=== PATIENT | female | born 1975 | race Caucasian/White ===

== ENCOUNTER 2018-12-02 08:50 | Emergency (ER) | payer BC ==
[2018-12-02] MEDS ORDERED: diphenhydrAMINE 50 MG Cap PO ONE (09:38)
[2018-12-02] MEDS: predniSONE 20 MG Tab PO ONE (09:45)
[2018-12-02] MEDS: diphenhydrAMINE 25 MG Tab PO ONE (09:50)
--- NOTE | 2018-12-02 10:04 | EDM.PDOC ---
ED HPI GENERAL MEDICAL PROBLEM - General Chief Complaint: Skin Complaint Stated Complaint: FACIAL SWELLING Time Seen by Provider: 12/02/18 09:00 - History of Present Illness INITIAL COMMENTS - FREE TEXT/NARRATIVE: Facial redness and swelling; mainly upper face and around eyes since awaking this am. Pt. states her skin is normally smooth and has been rough and bumpy like a rash since yesterday. She has many allergies to environmental allergens. No known exposures except a knew facial product; stopped today. No fever or chills, no nausea or diarrhea. - Related Data Allergies Allergy/AdvReac Type Severity Reaction Status Date / Time erythromycin base Allergy unknown Verified 12/02/18 09:01 Home Meds: Home Meds Levothyroxine Sodium [Synthroid] 25 mcg PO DAILY 12/02/18 [History] Past Medical History HEENT History: Reports: None Cardiovascular History: Reports: None Respiratory History: Reports: None Gastrointestinal History: Reports: None Genitourinary History: Reports: None Musculoskeletal History: Reports: None Neurological History: Reports: None Psychiatric History: Reports: None Endocrine/Metabolic History: Reports: Hypothyroidism Hematologic History: Reports: None Immunologic History: Reports: None Oncologic (Cancer) History: Reports: None Dermatologic History: Reports: Cellulitis Social & Family History - Tobacco Use Smoking Status *Q: Never Smoker Second Hand Smoke Exposure: No ED ROS GENERAL - Review of Systems Review Of Systems: ROS reveals no pertinent complaints other than HPI. ED EXAM, SKIN/RASH Exam: See Below General Appearance: Alert, WD/WN, No Apparent Distress Ears: Normal External Exam, Normal Canal, Hearing Grossly Normal, Normal TMs Nose: Normal Inspection, Normal Mucosa Throat/Mouth: Normal Inspection, Normal Oropharynx Head: Atraumatic, Normocephalic, Facial Swelling, Other (aditya orbital mild edema as well as mild eye lids with rash ) Neck: Normal Inspection, Supple, Non-Tender Respiratory/Chest: No Respiratory Distress, Lungs Clear, Normal Breath Sounds Cardiovascular: Normal Peripheral Pulses, Regular Rate, Rhythm Skin: Warm, Dry, Other (facial pink rash periorbital and extends to cheeks; mild edema of eye lids. No vesicles or weeping) Location, Skin: Face Characteristics: Maculopapular, Erythematous Associated features: Warmth, Swelling, Inflammation, Rough Lymphatic: No Adenopathy Course - Vital Signs Last Recorded V/S: Last Vital Signs Temp 37.2 C 12/02/18 08:57 Pulse 81 12/02/18 08:57 Resp 16 12/02/18 08:57 BP 144/91 H 12/02/18 08:57 Pulse Ox 100 12/02/18 08:57 - Orders/Labs/Meds Meds: Medications Discontinued Medications Generic Name Dose Route Start Last Admin Trade Name Horace PRN Reason Stop Dose Admin Diphenhydramine HCl 25 mg 12/02/18 09:38 Benadryl PO 12/02/18 09:39 ONETIME ONE Diphenhydramine HCl 25 mg 12/02/18 09:45 12/02/18 09:50 Benadryl PO 12/02/18 09:46 25 mg ONETIME ONE Administration Prednisone 40 mg 12/02/18 09:37 12/02/18 09:45 Prednisone PO 12/02/18 09:38 40 mg ONETIME ONE Administration - Re-Assessments/Exams Free Text/Narrative Re-Assessment/Exam: 12/03/18 09:59 Most likely this is a contact dermatitis related to the new facial wash; though could be another allergen. Will place her on antihystamines and steriods. She will f/u with PCP for possible dermatology consult. Departure - Departure Time of Disposition: 10:05 Disposition: Home, Self-Care 01 Condition: Good Clinical Impression: Periorbital dermatitis Contact dermatitis Qualifiers: Contact dermatitis type: allergic Contact dermatitis trigger: cosmetics Qualified Code(s): L23.2 - Allergic contact dermatitis due to cosmetics - Discharge Information *PRESCRIPTION DRUG MONITORING PROGRAM REVIEWED*: Not Applicable Instructions: Contact Dermatitis, [id number] Referrals: Cait Hernandez MD [Primary Care Provider] - Forms: ED Department Discharge Additional Instructions: Take OTC Benadryl 25 mg q 4-6 hours today. Then start marta 24 hours allergy medication tonight. Use prednisone 20 mg twice a day x 3 days. If not improving; return to the ER or Primary Care. Do not use any washes on face; only water; no make up till tomorrow.
== END 2018-12-02 10:15 | disposition home or self-care (01) ==
LOC: DL.ED 08:50
DX: L23.2 Allergic contact dermatitis due to cosmetics (principal); E03.9 Hypothyroidism, unspecified; Z79.899 Other long term (current) drug therapy
CPT/HCPCS: 99283; A9270